=== PATIENT | female | born 1930 | race Caucasian/White ===

== ENCOUNTER 2016-12-15 06:53 | Emergency (ER) | payer OTHER ==
--- NOTE | 2016-12-15 07:03 | EDPHY ---
H & P HPI/ROS: CHIEF COMPLAINT: Confusion HISTORY OF PRESENT ILLNESS: The patient is an 85-year-old female who was found wandering the neighborhood in [place]. She had difficulty giving police and EMS her information and cannot remember where she lives. She answers most questions appropriately including complicated mathematics questions or discussions about the recent book she has red however she does not remember the month or day of the week. She does recognize that she is in a hospital and states that she is embarrassed because she cannot remember things. She denies any history of Alzheimer's or dementia or Parkinson's etc. Her vital signs are stable and her blood sugar was 107 by EMS. She denies any pain or injury. REVIEW OF SYSTEMS: Constitutional: denies: chills, fever, recent illness, recent injury EENTM: denies: blurred vision, double vision, nose congestion Respiratory: denies: cough, shortness of breath Cardiac: denies: chest pain, irregular heart rate, lightheadedness, palpitations Gastrointestinal/Abdominal: denies: abdominal pain, diarrhea, nausea, vomiting, blood streaked stools Genitourinary: denies: dysuria, frequency, hematuria, pain Musculoskeletal: denies: joint pain, muscle pain Skin: denies: lesions, rash, jaundice, bruising Neurological: denies: headache, numbness, paresthesia, tingling, dizziness, weakness Hematologic/Lymphatic: denies: blood clots, easy bleeding, easy bruising Immunologic/allergic: denies: HIV/AIDS, transplant EXAM: GENERAL: Well-appearing, well-nourished and in no acute distress. HEAD: Atraumatic, normocephalic. EYES: Pupils equal round and reactive to light, extraocular movements intact, sclera anicteric, conjunctiva are normal. ENT: TMs normal, nares patent, oropharynx clear without exudates. Moist mucous membranes. NECK: Normal range of motion, supple without lymphadenopathy or JVD. LUNGS: Breath sounds clear to auscultation bilaterally and equal. No wheezes rales or rhonchi. HEART: Regular rate and rhythm without murmurs, rubs or gallops. ABDOMEN: Soft, nontender, normoactive bowel sounds. No guarding, no rebound. No masses appreciated. BACK: No CVA tenderness, no spinal tenderness, step-offs or deformities EXTREMITIES: Normal range of motion, no pitting or edema. No clubbing or cyanosis. NEUROLOGICAL: Mild confusion, Cranial nerves II through XII grossly intact. Normal speech, normal gait. 5/5 strength, normal movement in all extremities, normal sensation NIH stroke score is 1 for not knowing the month PSYCH: Normal mood, normal affect. SKIN: Warm, dry, normal turgor, no visible rashes or lesions. Source: Patient, EMS Exam Limitations: No limitations - Medical/Surgical History Other PMH: Unable to obtain due to condition - Family History Significant Family History: Other - Social History Smoking Status: Unknown if ever smoked Alcohol Use: None Drug Use: None Constitutional: Initial Vital Signs Temperature (C) 36.7 C 12/15/16 06:53 Heart Rate 70 12/15/16 06:53 Respiratory Rate 16 12/15/16 06:53 Blood Pressure 117/67 12/15/16 06:53 O2 Sat (%) 96 12/15/16 06:53 O2 Delivery Mode Room Air Allergies/Adverse Reactions: No Known Allergies Allergy (Unverified 12/15/16 08:27) Home Medications: Medication Instructions Recorded Cephalexin [Keflex] 500 mg PO TID #21 cap 12/15/16 Medical Decision Making ED Course/Re-evaluation: Patient's daughter is arrived. She states the patient has a history of dementia and is acting baseline. They recently moved levels in their house in the patient has been more afraid at night in particularly. She feels comfortable taking her home. We did agree to check a urine prior to discharge. 9:05 a.m. we discussed the urinalysis results. I will start her on Keflex. Otherwise daughters raise take her home. Differential Diagnosis: Partial list of the Differential diagnosis considered include but were not limited to; dementia, urinary tract infection, sun downers and although unlikely based on the history and physical exam, I also considered head injury, meningitis, acute coronary disease. I discussed these differential diagnoses and the plan with the patient as well as the usual and expected course. The patient understands that the diagnosis is provisional and that in medicine we are not always correct and that further workup is often warranted. Usual and customary warnings were given. All of the patient's questions were answered. The patient was instructed to return to the emergency department should the symptoms at all worsen or return, otherwise to followup with the physician as we discussed. - Data Points Laboratory Results: 12/15/16 08:40 Urine Color YELLOW Urine Appearance MODERATELY TURBID Urine pH 6.0 (5.0-7.5) Ur Specific [place] 1.017 (1.002-1.030) Urine Protein NEGATIVE (NEGATIVE) Urine Ketones TRACE H (NEGATIVE) Urine Blood NEGATIVE (NEGATIVE) Urine Nitrate POSITIVE H (NEGATIVE) Urine Bilirubin NEGATIVE (NEGATIVE) Urine Urobilinogen NEGATIVE EU EU (0.2-1.0) Ur Leukocyte Esterase 3+ H (NEGATIVE) Urine RBC 5-10 /hpf H /hpf (0-3) Urine WBC 50-182 /hpf H /hpf (0-3) Ur Epithelial Cells TRACE /lpf /lpf (NONE-1+) Urine Bacteria TRACE /hpf H /hpf (NONE SEEN) Urine Mucus 3+ /lpf H /lpf (NONE-1+) Urine Glucose NEGATIVE (NEGATIVE) Medications Given: Discontinued Medications Cephalexin HCl (Keflex) 500 mg PO EDNOW ONE PRN Reason: Protocol Stop: 12/15/16 09:08 Last Admin: 12/15/16 09:15 Dose: Not Given Departure - Departure Disposition: Home, Routine, Self-Care Clinical Impression: Urinary tract infection Qualifiers: Urinary tract infection type: acute cystitis Hematuria presence: without hematuria Qualified Code(s): N30.00 - Acute cystitis without hematuria Dementia Qualifiers: Dementia type: unspecified type Dementia behavioral disturbance: without behavioral disturbance Qualified Code(s): F03.90 - Unspecified dementia without behavioral disturbance Condition: Fair Instructions: Urinary Tract Infection in Women (ED), Dementia (ED) Referrals: Patient,NotPresent [Unknown] - As per Instructions Jaya Mcelroy MD [[facility] [place]] - As per Instructions Prescriptions: Cephalexin [Keflex] 500 mg PO TID #21 cap
[2016-12-15 07:06] VITALS: RESP 16; TEMP 98.1
[2016-12-15 08:52] LABS: COLOR YELLOW; LEUKOCYTE ESTERASE,URINE 3+ (NEGATIVE); NITRITE,URINE POSITIVE (NEGATIVE)
[2016-12-15 08:55] LABS: BACTERIA TRACE /hpf (NONE SEEN); MUCUS 3+ /lpf (NONE-1+); WBC,URINE 50-182 /hpf (0-3)
[2016-12-15] MEDS ORDERED: CEPHALEXIN 500 MG CAP PO ONE (09:07)
[2016-12-15 09:21] VITALS: BP 119/74; PULSE 61; O2SAT 100
== END 2016-12-15 09:14 | disposition home or self-care (01) ==
DX: F03.90 Unspecified dementia, unspecified severity, without behavioral disturbance, psychotic disturbance, mood disturbance, and anxiety (principal); N30.00 Acute cystitis without hematuria; B96.89 Other specified bacterial agents as the cause of diseases classified elsewhere

== ENCOUNTER 2017-06-12 22:04 | Emergency (ER) | payer OTHER ==
[2017-06-12 22:11] VITALS: RESP 18
--- NOTE | 2017-06-12 22:44 | EDPHY ---
H & P Stated Complaint: possible tooth infection starting today. left side of face swolle Time Seen by Provider: 06/12/17 22:43 HPI/ROS: Chief Complaint: Left facial swelling, tooth pain HPI: 86-year-old woman presenting with 1 day of left facial swelling and tooth pain in the left upper teeth. Is having some pain on that side as well. Does not recall any recent injuries. Does not currently have a dentist. Has not had any dental implants. Does not have any dentures. No difficulty swallowing. No swelling or fullness in her neck. No headache. No shortness of breath. ROS: 10 point Review of Systems is negative except as noted in the HPI. PMH: Denies Social History: [No] smoking, [no] alcohol, [ no recreational drug use] Family History: [non-contributory] Physical Exam: General: Awake alert, chest Face: There is swelling over her left upper cheek. No bony tenderness or step- offs. No erythema. No fluctuance or masses Mouth: She has got very poor dentition. She has got left upper dental tenderness to percussion in her premolars. No pointing or fluctuance. Neck: No submandibular tenderness or swelling. No lymphadenopathy, Skin: No rash - Personal History Current Tetanus/Diphtheria Vaccine: Yes Current Tetanus Diphtheria and Acellular Pertussis (TDAP): Yes - Medical/Surgical History Hx Asthma: No Hx Chronic Respiratory Disease: No Hx Diabetes: No Hx Cardiac Disease: No Hx Renal Disease: No Hx Cirrhosis: No Hx Alcoholism: No Hx HIV/AIDS: No Hx Splenectomy or Spleen Trauma: No Other PMH: Unable to obtain due to condition - Social History Smoking Status: Never smoked Constitutional: Initial Vital Signs Temperature (C) 37.4 C 06/12/17 22:09 Heart Rate 86 06/12/17 22:09 Respiratory Rate 18 06/12/17 22:09 Blood Pressure 119/76 06/12/17 22:09 O2 Sat (%) 96 06/12/17 22:09 O2 Delivery Mode Room Air Allergies/Adverse Reactions: No Known Allergies Allergy (Unverified 12/15/16 08:27) Home Medications: Medication Instructions Recorded Amoxicillin Trihydrate 500 mg PO TID #60 tab.chew 06/12/17 [Amoxicillin 250mg chew] Medical Decision Making - Data Points Medications Given: Discontinued Medications Amoxicillin (Amoxil Chewable 250 Mg Prepack#4) 1 btl TAKELUCINDAE EDNOW ONE PRN Reason: Protocol Stop: 06/12/17 23:03 Last Admin: 06/12/17 23:17 Dose: 1 btl Departure - Departure Disposition: Home, Routine, Self-Care Clinical Impression: Dental abscess Condition: Good Instructions: Dental Abscess (ED) Additional Instructions: Follow up with dentist in 2-3 days for further evaluation. Take her full course of antibiotics. Return to the emergency department for increasing pain, difficulty swallowing, difficulty breathing, or any other concerns. Referrals: Lilo Mello MD [Primary Care Provider] - As per Instructions [facility] [Outside] - As per Instructions Prescriptions: Amoxicillin Trihydrate [Amoxicillin 250mg chew] 500 mg PO TID #60 tab.chew
[2017-06-12] MEDS ORDERED: AMOXICILLIN 250 MG PREPACK#4 BTL TAKEHOME ONE (23:02)
[2017-06-12 23:34] VITALS: BP 138/76; PULSE 82; TEMP 99; O2SAT 95
== END 2017-06-12 23:36 | disposition home or self-care (01) ==
DX: K04.7 Periapical abscess without sinus (principal)